=== PATIENT | female | born 1950 | race American Indian/Alaskan Native ===

== ENCOUNTER 2019-07-13 21:52 | Inpatient (IN) | payer SELFPAY, MEDICARE ==
--- NOTE | 2019-07-13 22:31 | Emergency Department Report ---
HPI - General Chief Complaint: Altered Mental Status Time Seen by Provider: 07/13/19 22:23 - HPI HPI: 68-year-old -[place]ian female presents to the emergency department via EMS from home with altered mental status. The patient is very sleepy but is arousable. She is currently AAO x2 to person and place but not time, but she does know the current president. The patient says that she last remembers being at home and waiting for someone while smoking some marijuana but "that was way earlier." She does admit that she has been complaining of some midsternal chest pain intermittently but she did not tell anyone to call EMS and does not remembe r EMS being called. She has a past medical history of hypertension, RI x2, CHF, diabetes, hypothyroidism, asthma, breast cancer. ED Past Medical Hx - Past Medical History Hx Hypertension: Yes Hx Heart Attack/AMI: Yes Hx Diabetes: Yes Hx Deep Vein Thrombosis: No Hx Asthma: Yes Hx HIV: No Additional medical history: hypothyroid - Surgical History Hx Pacemaker: Yes (L CHEST) Additional Surgical History: R breast ca,heart attack X 2 - Social History Smoking Status: Unknown if ever smoked - Medications Home Medications: Home Medications Medication Instructions Recorded Confirmed Last Taken Type Potassium Chloride [Klor-Con 10] 20 meq PO DAILY 04/03/13 02/26/19 Unknown History Simvastatin (Nf) [Zocor TAB] 20 mg PO QHS 04/03/13 02/26/19 Unknown History Anastrozole 1 tab PO DAILY 02/26/19 02/26/19 Unknown History Aspirin [Aspirin BABY CHEW TAB] 81 mg PO QDAY 02/26/19 02/26/19 Unknown History Ferrous Sulfate [Feosol 325 MG tab] 1 tab PO Q2D 02/26/19 02/26/19 Unknown History Insulin Aspart (Nf) [NovoLOG 100 22 units SQ BID 02/26/19 02/26/19 Unknown History UNITS/ML VIAL] Insulin Detemir [Levemir Flextouch] 30 unit SQ BID 02/26/19 02/26/19 Unknown History Isosorbide Dinitrate [Isordil] 20 mg PO BID 02/26/19 02/26/19 Unknown History Levothyroxine [Synthroid] 88 mcg PO QAM 02/26/19 02/26/19 Unknown History Pantoprazole [Protonix TAB] 40 mg PO BID 02/26/19 02/26/19 Unknown History Sacubitril/Valsartan [Entresto 1 tab PO DAILY 02/26/19 02/26/19 Unknown History 49-51 mg] carvediloL [Coreg] 25 mg PO BID 02/26/19 02/26/19 Unknown History hydrALAZINE [Apresoline TAB] 100 mg PO TID 02/26/19 02/26/19 Unknown History traZODone [Desyrel] 100 mg PO QHS 02/26/19 02/26/19 Unknown History Fluconazole [Diflucan ORAL SOLN] 200 mg PO QDAY #2800 oral.liqd 03/01/19 Unknown Rx Metoclopramide [Reglan ORAL LIQ] 10 mg PO Q8H PRN #300 oral.liqd 03/01/19 Unknown Rx ED Review of Systems ROS: Stated complaint: ALTERED MENTAL STATUS Other details as noted in HPI Comment: All other systems reviewed and negative Constitutional: denies: chills, fever Eyes: denies: eye pain, vision change ENT: denies: ear pain, throat pain Respiratory: denies: cough, shortness of breath Cardiovascular: chest pain. denies: palpitations Gastrointestinal: denies: abdominal pain, vomiting Genitourinary: denies: dysuria, discharge Musculoskeletal: denies: back pain, arthralgia Skin: denies: rash, lesions Neurological: headache, confusion Physical Exam - Physical Exam Physical Exam: GENERAL: The patient is well-developed well-nourished. HENT: Normocephalic. Atraumatic. Patient has moist mucous membranes. EYES: Pupils equal reactive to light bilaterally. NECK: Supple. Trachea is midline. CHEST/LUNGS: Rhonchi heard. No tachypnea or accessory muscle use. There is no respiratory distress noted. HEART/CARDIOVASCULAR: Regular. There is no tachycardia. There is no murmur. ABDOMEN: Abdomen is soft, nontender. Patient has normal bowel sounds. There is no abdominal distention. SKIN: Skin is warm and dry. NEURO: The patient is very sleepy but is arousable. Once awake she is AAO x2 to person and place but not time. Cranial nerves II through XII grossly intact. No facial asymmetry. MUSCULOSKELETAL: There is no tenderness or deformity. There is no limitation range of motion. There is no evidence of acute injury. ED Medical Decision Making - Lab Data Result diagrams: 07/14/19 03:52 07/14/19 03:52 - EKG Data -: EKG Interpreted by Me - EKG Data When compared to previous EKG there are: no significant change Interpretation: unchanged when compared t (02/25/19), other (Atrial sensed ventricular paced rhythm at 60 bpm, left axis deviation, prolonged QTC) - Radiology Data Radiology results: report reviewed CT head without contrast INDICATION : Altered mental status. TECHNIQUE: Axial imaging performed from the skull apex through the skull base without the use of contrast. All CT examinations performed at this facility utilize dose modulation, iterative reconstruction or weight-based dosing, when appropriate, to reduce radiation dose to as low as reasonably achievable. COMPARISON: None FINDINGS: No acute intracranial hemorrhage or parenchymal abnormality. There is evidence of cerebellar vermis atrophy, likely chronic. Ventricles are normal in size and appear symmetric. Soft tissues including the orbits appear normal. No acute osseous abnormality. Sinuses and mastoid air cells are clear. IMPRESSION: No acute abnormality. CHEST 1 VIEW INDICATION / CLINICAL INFORMATION: Altered mental status. COMPARISON: 02/25/2019. FINDINGS: SUPPORT DEVICES: None. HEART / MEDIASTINUM: Mild cardiomegaly. LUNGS / PLEURA: Patchy bilateral airspace disease present bilaterally. - Medical Decision Making This patient initially presented for evaluation of altered mental status. Initially the patient is very sleepy but is arousable. She does display some mild confusion as she knows who the president is but was unable to tell me the year. However she does follow commands and there does not appear to be any focal or lateralizing deficits. A CT scan of the head was done that does not show any bleed, shift, mass, ischemia, or any other acute process. Chest x-ray shows some patchy bilateral airspace disease. The patient's labs initially show renal insufficiency and an elevated TSH. She was reevaluated multiple times over multiple hours and is much more awake and alert. At this point she is AAO x3. Blood cultures were sent and the patient was started on antibiotics secondary to the chest x-ray findings. Given her transient altered mental status, the bilateral pneumonia and the renal insufficiency, the patient will be admitted to the hospital for further evaluation and treatment. Also because of the bilateral pneumonia the patient was made a person under investigation for Covid 19 and placed in droplet precautions. She was accepted for admission by the hospitalist, Dr. Tran. Critical Care Time: No Critical care attestation.: If time is entered above; I have spent that time in minutes in the direct care of this critically ill patient, excluding procedure time. ED Disposition Clinical Impression: Acute kidney injury Bilateral pneumonia Qualifiers: Pneumonia type: due to unspecified organism Lung location: unspecified part of lung Qualified Code(s): J18.9 - Pneumonia, unspecified organism Hypotension Qualifiers: Hypotension type: unspecified hypotension type Qualified Code(s): I95.9 - Hypotension, unspecified Chest pain Qualifiers: Chest pain type: unspecified Qualified Code(s): R07.9 - Chest pain, unspecified Disposition: 09 OP ADMIT IP TO THIS HOSP Is pt being admited?: Yes Condition: Serious Time of Disposition: 00:51
[2019-07-13] MEDS ORDERED: SODIUM CHLORIDE 0.9% 500 ML 500 ML IV ONE (22:34)
--- NOTE | 2019-07-13 22:53 | XRay Report ---
CHEST 1 VIEW INDICATION / CLINICAL INFORMATION: Altered mental status. COMPARISON: 02/25/2019. FINDINGS: SUPPORT DEVICES: None. HEART / MEDIASTINUM: Mild cardiomegaly. LUNGS / PLEURA: Patchy bilateral airspace disease present bilaterally. Signer Name: Octavio Antonio MD Signed: 07/13/2019 10:49 PM Workstation Name: [id number]
--- NOTE | 2019-07-13 23:13 | Cat Scan Report ---
CT head without contrast INDICATION : Altered mental status. TECHNIQUE: Axial imaging performed from the skull apex through the skull base without the use of con trast. All CT examinations performed at this facility utilize dose modulation, iterative reconstruct ion or weight-based dosing, when appropriate, to reduce radiation dose to as low as reasonably achiev able. COMPARISON: None FINDINGS: No acute intracranial hemorrhage or parenchymal abnormality. There is evidence of cerebell ar vermis atrophy, likely chronic. Ventricles are normal in size and appear symmetric. Soft tissues including the orbits appear normal. No acute osseous abnormality. Sinuses and mastoid air cells are clear. IMPRESSION: No acute abnormality. Signer Name: Octavio Antonio MD Signed: 07/13/2019 11:09 PM Workstation Name: [id number]
[2019-07-13 23:40] LABS: Basophils % (Auto) 0.6 % (0.0-1.8); Eosinophils # (Auto) 0.2 K/mm3 (0.0-0.4); Eosinophils % (Auto) 2.7 % (0.0-4.3); Hematocrit 36.4 % (30.3-42.9); Hemoglobin 11.6 gm/dl (10.1-14.3); Lymphocytes # (Auto) 1.8 K/mm3 (1.2-5.4); Lymphocytes % (Auto) 22.9 % (13.4-35.0); Mean Corpuscular HGB Conc 32 % (30-34); Mean Corpuscular Volume 84 fl (79-97); Monocytes # (Auto) 0.6 K/mm3 (0.0-0.8); Platelet Count 228 K/mm3 (140-440); Red Blood Count 4.31 M/mm3 (3.65-5.03); Red Cell Distribution Width 16.1 % (13.2-15.2)
[2019-07-13 23:48] LABS: INR 0.97 (0.87-1.13)
[2019-07-13 23:49] LABS: Partial Thromboplastin Time 26.5 Sec. (24.2-36.6)
[2019-07-14 00:04] LABS: Alanine Aminotransferase 20 units/L (7-56); Albumin 4.1 g/dL (3.9-5); BUN/Creatinine Ratio 9; Blood Urea Nitrogen 14 mg/dL (7-17); Calcium 9.3 mg/dL (8.4-10.2); Hemolysis Index 0
[2019-07-14 00:33] LABS: Amphetamine Screen,Urine PRESUMPTIVE NEGATIVE; Benzodiazepines Screen,Urine PRESUMPTIVE NEGATIVE; Cannabinoid Screen,Urine PRESUMPTIVE NEGATIVE; Cocaine Screen,Urine PRESUMPTIVE NEGATIVE; Methadone Screen,Urine PRESUMPTIVE NEGATIVE; Opiate Screen,Urine PRESUMPTIVE NEGATIVE
[2019-07-14 00:36] LABS: Bacteria,Urine 1+ /HPF (Negative); Bilirubin,Urine NEG (Negative); Blood,Urine NEG (Negative); Color,Urine Yellow (Yellow); Mucus,Urine FEW /HPF; Urobilinogen,Urine < 2.0 mg/dL (<2.0)
[2019-07-14] MEDS ORDERED: cefTRIAXone/NS 1 GM/50 ML 1 GM/50 ML BAG IV ONE (00:36)
[2019-07-14] MEDS ORDERED: AZITHROMYCIN 500 MG in SODIUM CHLORIDE 0.9% 250ML 250 ML IV ONE (00:37)
[2019-07-14] MEDS ORDERED: NITROGLYCERIN 0.4 MG TAB SUBL SL PRN (02:04)
[2019-07-14] MEDS ORDERED: ACETAMINOPHEN 325 MG TAB PO PRN (02:04)
[2019-07-14] MEDS ORDERED: DEXTROSE 50% IN WATER (25GM) 50 ML SYRINGE IV PRN (02:04)
[2019-07-14] MEDS ORDERED: MAGNESIUM HYDROXIDE (MOM) ORAL LIQD UDC PO PRN (02:04)
--- NOTE | 2019-07-14 02:18 | History and Physical Report ---
History of Present Illness Date of examination: 07/14/19 Date of admission: 07/14/19 01:25 Chief complaint: Altered mental status Cough History of present illness: 68-year-old -[place] female with known history of hypertension, PR x2 in the past, diabetes mellitus, hypothyroidism, asthma and breast cancer presenting to the emergency room today via EMS from home with altered mental status. Patient was said to be very sleepy and not quite arousable. She became more alert upon arrival in the emergency room. Patient indicates that she last remembered that she was waiting for someone at home while smoking some marijuana earlier in the day. She has been having some midsternal chest pain which has been intermittent. She denies any radiation, no no relieving or exacerbating factor. Chest pain is said to be sharp. She denies any nausea vomiting, no diarrhea, no fever or chills, no abdominal pain. She admits she has been having some cough productive of some yellowish sputum.. She denies any sick contacts and no recent travel. She denies having contact with anyone with COVID-19. Work-up in the emergency room reveals pneumonia on the chest x-ray, her labs also significant for some renal insufficiency. She was initially hypotensive in the emergency room and had some IV fluid with significant improvement in her vital signs. Past History Past Medical History: CAD, diabetes, hypertension, hypothyroidism, other (Asthma, history of right breast cancer) Past Surgical History: Other (Pacemaker placement) Social history: no significant social history Medications and Allergies Allergies Allergy/AdvReac Type Severity Reaction Status Date / Time aspirin AdvReac Vomiting Verified 04/03/13 07:46 Home Medications Medication Instructions Recorded Confirmed Last Taken Type Potassium Chloride [Klor-Con 10] 20 meq PO DAILY 04/03/13 02/26/19 Unknown History Simvastatin (Nf) [Zocor TAB] 20 mg PO QHS 04/03/13 02/26/19 Unknown History Anastrozole 1 tab PO DAILY 02/26/19 02/26/19 Unknown History Aspirin [Aspirin BABY CHEW TAB] 81 mg PO QDAY 02/26/19 02/26/19 Unknown History Ferrous Sulfate [Feosol 325 MG tab] 1 tab PO Q2D 02/26/19 02/26/19 Unknown History Insulin Aspart (Nf) [NovoLOG 100 22 units SQ BID 02/26/19 02/26/19 Unknown History UNITS/ML VIAL] Insulin Detemir [Levemir Flextouch] 30 unit SQ BID 02/26/19 02/26/19 Unknown History Isosorbide Dinitrate [Isordil] 20 mg PO BID 02/26/19 02/26/19 Unknown History Levothyroxine [Synthroid] 88 mcg PO QAM 02/26/19 02/26/19 Unknown History Pantoprazole [Protonix TAB] 40 mg PO BID 02/26/19 02/26/19 Unknown History Sacubitril/Valsartan [Entresto 1 tab PO DAILY 02/26/19 02/26/19 Unknown History 49-51 mg] carvediloL [Coreg] 25 mg PO BID 02/26/19 02/26/19 Unknown History hydrALAZINE [Apresoline TAB] 100 mg PO TID 02/26/19 02/26/19 Unknown History traZODone [Desyrel] 100 mg PO QHS 02/26/19 02/26/19 Unknown History Fluconazole [Diflucan ORAL SOLN] 200 mg PO QDAY #2800 oral.liqd 03/01/19 Unknown Rx Metoclopramide [Reglan ORAL LIQ] 10 mg PO Q8H PRN #300 oral.liqd 03/01/19 Unknown Rx Review of Systems Constitutional: no fever, no chills Ears, nose, mouth and throat: no nasal congestion, no sore throat Cardiovascular: no chest pain, no palpitations Respiratory: cough with sputum, shortness of breath Gastrointestinal: no abdominal pain, no nausea, no vomiting, no diarrhea Genitourinary Female: no flank pain, no dysuria, no hematuria Musculoskeletal: no neck pain, no low back pain Integumentary: no rash, no pruritis Neurological: change in mentation, no headaches Psychiatric: no anxiety, no depression Exam - Constitutional Vitals: Temp Pulse Resp BP Pulse Ox 98.7 F 60 19 97/66 95 07/13/19 22:10 07/14/19 00:15 07/14/19 00:15 07/14/19 00:15 07/14/19 00:15 General appearance: Present: no acute distress, well-nourished, obese - EENT Eyes: Present: PERRL, EOM intact ENT: hearing intact, clear oral mucosa, dentition normal - Neck Neck: Present: supple, normal ROM - Respiratory Respiratory effort: normal Respiratory: bilateral: diminished - Extremities Extremities: no ischemia, pulses intact, pulses symmetrical, No edema, Full ROM Peripheral Pulses: within normal limits - Abdominal General gastrointestinal: Present: soft, non-tender, non-distended, normal bowel sounds - Integumentary Integumentary: Present: clear, warm, dry, rash (Diffuse hyperpigmented rashes on lower extremities) - Musculoskeletal Musculoskeletal: strength equal bilaterally - Psychiatric Psychiatric: appropriate mood/affect, intact judgment & insight, cooperative - Neurologic Neurologic: CNII-XII intact, moves all extremities HEART Score - HEART Score Troponin: Troponin T < 0.010 ng/mL (0.00-0.029) 07/13/19 22:58 Results - Labs CBC & Chem 7: 07/14/19 03:52 07/14/19 03:52 Labs: Abnormal lab results 07/13/19 07/13/19 07/13/19 Range/Units 22:58 22:58 22:58 MCH 27 L (28-32) pg RDW 16.1 H (13.2-15.2) % [place] % (Auto) 8.0 H (0.0-7.3) % D-Dimer (0-234) ng/mlDDU Creatinine 1.5 H (0.7-1.2) mg/dL Glucose 157 H (65-100) mg/dL Lactic Acid (0.7-2.0) mmol/L TSH 10.350 H (0.270-4.200) mlU/mL 07/13/19 07/14/19 07/14/19 Range/Units 23:12 00:56 00:56 MCH (28-32) pg RDW (13.2-15.2) % [place] % (Auto) (0.0-7.3) % D-Dimer 927.08 H (0-234) ng/mlDDU Creatinine (0.7-1.2) mg/dL Glucose (65-100) mg/dL Lactic Acid 2.20 H* 2.20 H* (0.7-2.0) mmol/L TSH (0.270-4.200) mlU/mL Assessment and Plan - Patient Problems (1) Bilateral pneumonia Current Visit: Yes Status: Acute Qualifiers: Pneumonia type: due to unspecified organism Lung location: unspecified part of lung Qualified Code(s): J18.9 - Pneumonia, unspecified organism Plan to address problem: Patient placed on empiric IV antibiotics and IV fluid. She also be ruled out for COVID-[address]. [address] on droplet precautions. (2) Acute kidney injury Current Visit: Yes Status: Acute Plan to address problem: Possibly secondary to dehydration. Will monitor BUN and creatinine. (3) Chest pain Current Visit: Yes Status: Acute Qualifiers: Chest pain type: unspecified Qualified Code(s): R07.9 - Chest pain, unspecified Plan to address problem: Patient placed on telemetry. Will monitor serial troponin levels. Also place a consult to cardiology for further evaluation and recommendation Patient be scheduled for stress test. (4) Type II diabetes mellitus Current Visit: No Status: Acute Plan to address problem: We will monitor Accu-Cheks and resume routine home medications once reconciled. (5) DVT prophylaxis Current Visit: Yes Status: Acute Plan to address problem: Patient placed on subcutaneous heparin. (6) Full code status Current Visit: Yes Status: Acute
[2019-07-14 04:41] LABS: Basophils % (Auto) 0.4 % (0.0-1.8); Eosinophils # (Auto) 0.2 K/mm3 (0.0-0.4); Eosinophils % (Auto) 2.6 % (0.0-4.3); Hematocrit 34.7 % (30.3-42.9); Hemoglobin 11.3 gm/dl (10.1-14.3); Lymphocytes # (Auto) 2.1 K/mm3 (1.2-5.4); Lymphocytes % (Auto) 25.7 % (13.4-35.0); Mean Corpuscular HGB Conc 32 % (30-34); Mean Corpuscular Volume 86 fl (79-97); Monocytes # (Auto) 0.8 K/mm3 (0.0-0.8); Monocytes % (Auto) 9.7 % (0.0-7.3); Platelet Count 162 K/mm3 (140-440); Red Blood Count 4.05 M/mm3 (3.65-5.03)
[2019-07-14 05:00] LABS: BUN/Creatinine Ratio 11; Blood Urea Nitrogen 16 mg/dL (7-17); Calcium 9.4 mg/dL (8.4-10.2)
[2019-07-14 05:26] LABS: C-Reactive Protein 0.3 mg/dL (0.00-1.30)
[2019-07-14] MEDS ORDERED: REGADENOSON 0.4 MG/5 ML INJ IV ONE ×2 (08:21→08:27)
[2019-07-14] MEDS: INSULIN LISPRO 100 UNIT/ML SUB-Q SCH ×4 (10:06→21:44)
[2019-07-14] MEDS ORDERED: SODIUM CHLORIDE 0.9% 1000 ML 1,000 ML ONE (10:16)
[2019-07-14] MEDS ORDERED: MORPHINE 2 MG/1 ML INJ ONE ×2 (10:18→15:27)
--- NOTE | 2019-07-14 10:33 | Event Note ---
Date: 07/14/19 This is a follow-up from an admission earlier this morning. Patient seen and examined. We will continue to plan as outlined in the H&P. Total time equals 35 minutes with greater than 50% spent on coordination of care and counseling.
[2019-07-14] MEDS: SODIUM CHLORIDE 0.9% 1000 ML 1,000 ML IV SCH ×2 (11:02→17:26)
[2019-07-14] MEDS: MORPHINE 2 MG/1 ML INJ IV PRN ×3 (11:02→21:49)
[2019-07-14] MEDS ORDERED: INSULIN LISPRO 100 UNIT/ML SUB-Q ONE (13:07)
--- NOTE | 2019-07-14 13:22 | Consultation ---
History of Present Illness Consult date: 07/14/19 Consult reason: chest pain History of present illness: This is a 68-year old woman who presents to the emergency department with altered mental status. Patient reports taking trazodone and Mucinex for congestion before going to bed. Patient awoke with confusion and was brought in for evaluation. Currently, alert and oriented. She denies chest pain and unusual shortness of breath. Chest x-ray reports patchy bilateral airspace. Patient is on isolation for potential COVID 19. An ECG is AV paced rhythm. Patient has a history of nonischemic cardiomyopathy. She had a cardiac cath in 2015 that showed normal coronary arteries with an ejection fraction 50%. Subsequent echocardiograms showed a severe left ventricular dysfunction and a year ago she had a bi-ventricular dual chamber ICD implant. Her latest cardiac workup was done in February. She had a normal stress thallium test at [place]. An echocardiogram done at this hospital showed a left ventricular ejection fraction 40-45%. Past History Past Medical History: CAD, diabetes, hypertension, hypothyroidism, other (Asthma, history of right breast cancer) Past Surgical History: Other (Pacemaker placement) Social history: no significant social history Medications and Allergies Allergies Allergy/AdvReac Type Severity Reaction Status Date / Time aspirin AdvReac Vomiting Verified 04/03/13 07:46 Home Medications Medication Instructions Recorded Confirmed Last Taken Type Potassium Chloride [Klor-Con 10] 20 meq PO DAILY 04/03/13 02/26/19 Unknown History Simvastatin (Nf) [Zocor TAB] 20 mg PO QHS 04/03/13 02/26/19 Unknown History Anastrozole 1 tab PO DAILY 02/26/19 02/26/19 Unknown History Aspirin [Aspirin BABY CHEW TAB] 81 mg PO QDAY 02/26/19 02/26/19 Unknown History Ferrous Sulfate [Feosol 325 MG tab] 1 tab PO Q2D 02/26/19 02/26/19 Unknown History Insulin Aspart (Nf) [NovoLOG 100 22 units SQ BID 02/26/19 02/26/19 Unknown History UNITS/ML VIAL] Insulin Detemir [Levemir Flextouch] 30 unit SQ BID 02/26/19 02/26/19 Unknown History Isosorbide Dinitrate [Isordil] 20 mg PO BID 02/26/19 02/26/19 Unknown History Levothyroxine [Synthroid] 88 mcg PO QAM 02/26/19 02/26/19 Unknown History Pantoprazole [Protonix TAB] 40 mg PO BID 02/26/19 02/26/19 Unknown History Sacubitril/Valsartan [Entresto 1 tab PO DAILY 02/26/19 02/26/19 Unknown History 49-51 mg] carvediloL [Coreg] 25 mg PO BID 02/26/19 02/26/19 Unknown History hydrALAZINE [Apresoline TAB] 100 mg PO TID 02/26/19 02/26/19 Unknown History traZODone [Desyrel] 100 mg PO QHS 02/26/19 02/26/19 Unknown History Fluconazole [Diflucan ORAL SOLN] 200 mg PO QDAY #2800 oral.liqd 03/01/19 Unknown Rx Metoclopramide [Reglan ORAL LIQ] 10 mg PO Q8H PRN #300 oral.liqd 03/01/19 Unknown Rx Active Meds: Active Medications Acetaminophen (Tylenol) 650 mg PO Q6H PRN PRN Reason: Pain MILD(1-3)/Fever >100.5/ORNELAS Aspirin (Ecotrin) 325 mg PO QDAY ROSE Dextrose (D50w (25gm) Syringe) 0 ml IV Q30MIN PRN; Protocol PRN Reason: Hypoglycemia Heparin Sodium (Porcine) (Heparin) 5,000 unit SUB-Q Q8HR ROSE Sodium Chloride (Nacl 0.9% 1000 Ml) 1,000 mls @ 125 mls/hr IV DIRECT ROSE Last Admin: 07/14/19 11:02 Dose: 125 mls/hr Documented by: Ceftriaxone Sodium (Rocephin/Ns 2 Gm/100 Ml) 2 gm in 100 mls @ 200 mls/hr IV Q24HR@2200 ROSE; Protocol Azithromycin 500 mg/ Sodium (Chloride) 250 mls @ 250 mls/hr IV Q24HR@2200 ROSE; Protocol Stop: 07/17/19 22:59 Insulin Human Lispro (Humalog) 0 unit SUB-Q ACHS ROSE; Protocol Last Admin: 07/14/19 10:06 Dose: Not Given Documented by: Magnesium Hydroxide (Milk Of Magnesia) 30 ml PO Q4H PRN PRN Reason: Constipation Morphine Sulfate (Morphine) 2 mg IV Q5MIN PRN PRN Reason: Chest Pain unrelieved by NTG Last Admin: 07/14/19 11:02 Dose: 2 mg Documented by: Nitroglycerin (Nitrostat) 0.4 mg SL Q5M PRN PRN Reason: Chest Pain Sodium Chloride (Sodium Chloride Flush Syringe 10 Ml) 10 ml IV BID ROSE Last Admin: 07/14/19 11:01 Dose: 10 ml Documented by: Sodium Chloride (Sodium Chloride Flush Syringe 10 Ml) 10 ml IV PRN PRN PRN Reason: LINE FLUSH Physical Examination Vital Signs Temp Pulse Resp BP Pulse Ox 98.7 F 60 20 84/42 95 07/13/19 22:10 07/13/19 22:10 07/13/19 22:10 07/13/19 22:10 07/13/19 22:10 General appearance: no acute distress HEENT: Positive: PERRL Neck: Positive: trachea midline Cardiac: Positive: Other (AV paced) Neuro: Positive: Grossly Intact Results 07/14/19 03:52 07/14/19 03:52 Cardiac Enzymes 07/13/19 07/14/19 Range/Units 22:58 00:56 AST 24 (5-40) units/L Lactate Dehydrogenase 263 H (91-180) units/L Coagulation 07/13/19 Range/Units 22:58 PT 13.0 (12.2-14.9) Sec. INR 0.97 (0.87-1.13) APTT 26.5 (24.2-36.6) Sec. CBC 07/13/19 07/14/19 Range/Units 22:58 03:52 WBC 7.9 8.3 (4.5-11.0) K/mm3 RBC 4.31 4.05 (3.65-5.03) M/mm3 Hgb 11.6 11.3 (10.1-14.3) gm/dl Hct 36.4 34.7 (30.3-42.9) % Plt Count 228 162 (140-440) K/mm3 Lymph # 1.8 2.1 (1.2-5.4) K/mm3 [place] # 0.6 0.8 (0.0-0.8) K/mm3 Eos # 0.2 0.2 (0.0-0.4) K/mm3 Baso # 0.0 0.0 (0.0-0.1) K/mm3 Comprehensive Metabolic Panel 07/13/19 07/14/19 Range/Units 22:58 03:52 Sodium 143 141 (137-145) mmol/L Potassium 3.6 4.7 D (3.6-5.0) mmol/L Chloride 100.3 99.5 (98-107) mmol/L Carbon Dioxide 26 26 (22-30) mmol/L BUN 14 16 (7-17) mg/dL Creatinine 1.5 H 1.5 H (0.7-1.2) mg/dL Glucose 157 H 148 H (65-100) mg/dL Calcium 9.3 9.4 (8.4-10.2) mg/dL AST 24 (5-40) units/L ALT 20 (7-56) units/L Alkaline Phosphatase 73 (35-129) units/L Total Protein 7.0 (6.3-8.2) g/dL Albumin 4.1 (3.9-5) g/dL
--- NOTE | 2019-07-14 13:44 | Consultation ---
History of Present Illness - Reason for Consult Consult date: 07/14/19 COVID rule out Requesting physician: KERRY HUI - History of Present Illness The patient is a 68-year-old female with hypertension, cardiomyopathy, status post indwelling AICD, diabetes mellitus, hypothyroidism, asthma, history of breast cancer was admitted from the emergency room with complaints of cough and altered mental status. She also complained of some midsternal chest pain. She has had no fever or chills. Chest x-ray showed bilateral airspace disease. She was placed on COVID isolation. Infectious diseases was consulted for additional evaluation. Here, she has been afebrile with no leukocytosis. D-dimer 927, LDH 263, CRP 0.3, procalcitonin less than 0.05, ferritin 98.4 Review of Systems: reviewed in the chart, unable to obtain directly due to PPE shortage and preservation Past History Past Medical History: CAD, diabetes, hypertension, hypothyroidism, other (Asthma, history of right breast cancer) Past Surgical History: Other (Pacemaker placement) Social history: no significant social history Medications and Allergies Allergies Allergy/AdvReac Type Severity Reaction Status Date / Time aspirin AdvReac Vomiting Verified 04/03/13 07:46 Home Medications Medication Instructions Recorded Confirmed Last Taken Type Potassium Chloride [Klor-Con 10] 20 meq PO DAILY 04/03/13 02/26/19 Unknown History Simvastatin (Nf) [Zocor TAB] 20 mg PO QHS 04/03/13 02/26/19 Unknown History Anastrozole 1 tab PO DAILY 02/26/19 02/26/19 Unknown History Aspirin [Aspirin BABY CHEW TAB] 81 mg PO QDAY 02/26/19 02/26/19 Unknown History Ferrous Sulfate [Feosol 325 MG tab] 1 tab PO Q2D 02/26/19 02/26/19 Unknown History Insulin Aspart (Nf) [NovoLOG 100 22 units SQ BID 02/26/19 02/26/19 Unknown History UNITS/ML VIAL] Insulin Detemir [Levemir Flextouch] 30 unit SQ BID 02/26/19 02/26/19 Unknown History Isosorbide Dinitrate [Isordil] 20 mg PO BID 02/26/19 02/26/19 Unknown History Levothyroxine [Synthroid] 88 mcg PO QAM 02/26/19 02/26/19 Unknown History Pantoprazole [Protonix TAB] 40 mg PO BID 02/26/19 02/26/19 Unknown History Sacubitril/Valsartan [Entresto 1 tab PO DAILY 02/26/19 02/26/19 Unknown History 49-51 mg] carvediloL [Coreg] 25 mg PO BID 02/26/19 02/26/19 Unknown History hydrALAZINE [Apresoline TAB] 100 mg PO TID 02/26/19 02/26/19 Unknown History traZODone [Desyrel] 100 mg PO QHS 02/26/19 02/26/19 Unknown History Fluconazole [Diflucan ORAL SOLN] 200 mg PO QDAY #2800 oral.liqd 03/01/19 Unknown Rx Metoclopramide [Reglan ORAL LIQ] 10 mg PO Q8H PRN #300 oral.liqd 03/01/19 Unknown Rx Active Meds: Active Medications Acetaminophen (Tylenol) 650 mg PO Q6H PRN PRN Reason: Pain MILD(1-3)/Fever >100.5/ORNELAS Aspirin (Ecotrin) 325 mg PO QDAY ROSE Dextrose (D50w (25gm) Syringe) 0 ml IV Q30MIN PRN; Protocol PRN Reason: Hypoglycemia Heparin Sodium (Porcine) (Heparin) 5,000 unit SUB-Q Q8HR ROSE Sodium Chloride (Nacl 0.9% 1000 Ml) 1,000 mls @ 125 mls/hr IV DIRECT ROSE Last Admin: 07/14/19 11:02 Dose: 125 mls/hr Documented by: Ceftriaxone Sodium (Rocephin/Ns 2 Gm/100 Ml) 2 gm in 100 mls @ 200 mls/hr IV Q24HR@2200 ROSE; Protocol Azithromycin 500 mg/ Sodium (Chloride) 250 mls @ 250 mls/hr IV Q24HR@2200 ROSE; Protocol Stop: 07/17/19 22:59 Insulin Human Lispro (Humalog) 0 unit SUB-Q ACHS ROSE; Protocol Last Admin: 07/14/19 13:25 Dose: 4 unit Documented by: Magnesium Hydroxide (Milk Of Magnesia) 30 ml PO Q4H PRN PRN Reason: Constipation Morphine Sulfate (Morphine) 2 mg IV Q5MIN PRN PRN Reason: Chest Pain unrelieved by NTG Last Admin: 07/14/19 11:02 Dose: 2 mg Documented by: Nitroglycerin (Nitrostat) 0.4 mg SL Q5M PRN PRN Reason: Chest Pain Sodium Chloride (Sodium Chloride Flush Syringe 10 Ml) 10 ml IV BID ROSE Last Admin: 07/14/19 11:01 Dose: 10 ml Documented by: Sodium Chloride (Sodium Chloride Flush Syringe 10 Ml) 10 ml IV PRN PRN PRN Reason: LINE FLUSH Physical Examination - Physical Exam Narrative exam: Physical Exam (reviewed in chart due to PPE conservation) Constitutional: limited due to PPE conservation strategy Head, Ears, Nose: limited due to PPE conservation strategy Eyes: limited due to PPE conservation strategy Neck: limited due to PPE conservation strategy Oral: limited due to PPE conservation strategy Cardiovascular: limited due to PPE conservation strategy Respiratory: limited due to PPE conservation strategy GI: limited due to PPE conservation strategy Musculoskeletal: limited due to PPE conservation strategy Skin: limited due to PPE conservation strategy Hem/Lymphatic: limited due to PPE conservation strategy Psych: limited due to PPE conservation strategy Neurological: limited due to PPE conservation strategy - Constitutional Vitals: Vital Signs Temp Pulse Resp BP Pulse Ox 98.7 F 61 16 177/63 99 07/13/19 22:10 07/14/19 11:01 07/14/19 11:01 07/14/19 11:01 07/14/19 11:01 Temperature -Last 24 Hours Temperature 98.7 F Results - Labs CBC & Chem 7: 07/14/19 03:52 07/14/19 03:52 Labs: Abnormal lab results 07/13/19 07/13/19 07/13/19 Range/Units 22:58 22:58 22:58 MCH 27 L (28-32) pg RDW 16.1 H (13.2-15.2) % [place] % (Auto) 8.0 H (0.0-7.3) % D-Dimer (0-234) ng/mlDDU Creatinine 1.5 H (0.7-1.2) mg/dL Glucose 157 H (65-100) mg/dL POC Glucose (70-105) Lactic Acid (0.7-2.0) mmol/L Lactate Dehydrogenase (91-180) units/L TSH 10.350 H (0.270-4.200) mlU/mL 07/13/19 07/14/19 07/14/19 Range/Units 23:12 00:56 00:56 MCH (28-32) pg RDW (13.2-15.2) % [place] % (Auto) (0.0-7.3) % D-Dimer 927.08 H (0-234) ng/mlDDU Creatinine (0.7-1.2) mg/dL Glucose (65-100) mg/dL POC Glucose (70-105) Lactic Acid 2.20 H* 2.20 H* (0.7-2.0) mmol/L Lactate Dehydrogenase (91-180) units/L TSH (0.270-4.200) mlU/mL 07/14/19 07/14/19 07/14/19 Range/Units 00:56 03:52 03:52 [facility] (28-32) pg RDW 16.0 H (13.2-15.2) % [place] % (Auto) 9.7 H (0.0-7.3) % D-Dimer (0-234) ng/mlDDU Creatinine 1.5 H (0.7-1.2) mg/dL Glucose 148 H (65-100) mg/dL POC Glucose (70-105) Lactic Acid (0.7-2.0) mmol/L Lactate Dehydrogenase 263 H (91-180) units/L TSH (0.270-4.200) mlU/mL 07/14/19 Range/Units 09:01 [facility] (28-32) pg RDW (13.2-15.2) % [place] % (Auto) (0.0-7.3) % D-Dimer (0-234) ng/mlDDU Creatinine (0.7-1.2) mg/dL Glucose (65-100) mg/dL POC Glucose 248 H (70-105) Lactic Acid (0.7-2.0) mmol/L Lactate Dehydrogenase (91-180) units/L TSH (0.270-4.200) mlU/mL - Imaging and Cardiology Chest x-ray: report reviewed, image reviewed (Chest x-ray showed indwelling cardiac device, bilateral patchy airspace disease.) Assessment and Plan Cultures: 07/14/2019 blood culture: In process A/P: 68-year-old female with hypertension, cardiomyopathy, status post indwelling AICD, diabetes mellitus, hypothyroidism, asthma, history of breast cancer, admitted with: #Bilateral airspace disease: Etiology pneumonia versus heart failure. CRP and pro-calcitonin are low. Low suspicion for infectious process. Agree with COVID-19 rule out. D-dimer 927, LDH 263, CRP 0.3, procalcitonin less than 0.05, ferritin 98.4 #CED versus CKD #DM-2 Recs: Follow-up COVID-19 PCR Low suspicion for infectious process especially bacterial pneumonia, will discontinue antibiotics BNP ordered, cardiology following My Kumar MD, FACP [facility] ([facility]) C: [phone] O: [phone] F: [phone]
[2019-07-14] MEDS ORDERED: carvediloL 25 MG TAB PO ONE (14:30)
[2019-07-14] MEDS ORDERED: hydrALAZINE 100 MG TAB PO ONE (14:30)
[2019-07-14] MEDS ORDERED: carvediloL 25 MG TAB ONE (14:47)
[2019-07-14] MEDS ORDERED: hydrALAZINE 100 MG TAB ONE (14:47)
[2019-07-14] MEDS ORDERED: HEPARIN 5,000 UNIT/1 ML VIAL ONE (14:47)
[2019-07-14] MEDS: HEPARIN 5,000 UNIT/1 ML VIAL SUB-Q SCH ×2 (14:59→21:42)
[2019-07-14] MEDS ORDERED: ACETAMINOPHEN 325 MG TAB ONE (15:27)
[2019-07-14] MEDS: hydrALAZINE 100 MG TAB PO SCH (20:38)
[2019-07-14] MEDS: carvediloL 25 MG TAB PO SCH (21:41)
[2019-07-14] MEDS: ISOSORBIDE DINITRATE 20 MG TAB PO SCH (21:45)
[2019-07-14] MEDS ORDERED: cefTRIAXone/NS 2 GM/100 ML 2 GM/100 ML BAG IV SCH (22:00)
[2019-07-14] MEDS ORDERED: AZITHROMYCIN 500 MG in SODIUM CHLORIDE 0.9% 250ML 250 ML IV SCH (22:00)
[2019-07-15] MEDS: SODIUM CHLORIDE 0.9% 1000 ML 1,000 ML IV SCH ×3 (01:08→17:00)
[2019-07-15 04:30] LABS: INR 1.05 (0.87-1.13)
[2019-07-15 04:33] LABS: Hemoglobin 11.3 gm/dl (10.1-14.3); Mean Corpuscular HGB Conc 32 % (30-34); Mean Corpuscular Volume 85 fl (79-97); Platelet Count 159 K/mm3 (140-440); Red Blood Count 4.09 M/mm3 (3.65-5.03); Red Cell Distribution Width 16.1 % (13.2-15.2)
[2019-07-15 04:40] LABS: BUN/Creatinine Ratio 12; Blood Urea Nitrogen 12 mg/dL (7-17); Calcium 8.5 mg/dL (8.4-10.2); Hemolysis Index 84
[2019-07-15] MEDS: HEPARIN 5,000 UNIT/1 ML VIAL SUB-Q SCH ×3 (06:36→21:22)
[2019-07-15] MEDS: MORPHINE 2 MG/1 ML INJ IV PRN ×3 (06:42→17:38)
[2019-07-15] MEDS: hydrALAZINE 100 MG TAB PO SCH ×3 (08:51→20:18)
[2019-07-15] MEDS: INSULIN LISPRO 100 UNIT/ML SUB-Q SCH ×5 (08:51→21:23)
[2019-07-15] MEDS: ASPIRIN EC 325 MG TAB PO SCH (09:16)
[2019-07-15] MEDS: ISOSORBIDE DINITRATE 20 MG TAB PO SCH ×2 (09:16→21:23)
[2019-07-15] MEDS: carvediloL 25 MG TAB PO SCH ×2 (09:17→21:20)
--- NOTE | 2019-07-15 09:21 | Progress Note ---
Assessment and Plan Assessment and plan: (1) Bilateral pneumonia Current Visit: Yes Status: Acute Qualifiers: Pneumonia type: due to unspecified organism Lung location: unspecified part of lung Qualified Code(s): J18.9 - Pneumonia, unspecified organism Plan to address problem: Patient placed on empiric IV antibiotics and IV fluid. Negative for Covid-19. (2) Acute kidney injury Current Visit: Yes Status: Acute Plan to address problem: Due to vasomotor nephropathy Now resolved Chest pain Current Visit: Yes Status: Acute Qualifiers: Chest pain type: unspecified Qualified Code(s): R07.9 - Chest pain, unspecified Plan to address problem: Patient placed on telemetry. Will monitor serial troponin levels. Also place a consult to cardiology for further evaluation and recommendation (4) Type II diabetes mellitus Current Visit: No Status: Acute Plan to address problem: We will monitor Accu-Cheks and resume routine home medications once reconciled. (5) DVT prophylaxis Current Visit: Yes Status: Acute Plan to address problem: Patient placed on subcutaneous heparin. HTN urgency Resume home meds Add hydralazine prn (6) Full code status History Interval history: feels better nausea Hospitalist Physical - Physical exam Narrative exam: GEN: Not in acute distress, lying in bed,obese HEENT: Normocephalic, atraumatic, Neck: supple, No JVD Lungs: Clear to auscultation bilaterally, heart;S1 and S2 reg, no murmurs, rubs or gallop Abd:soft, non tender, non distended, normal bowel sounds, Ext: No edema, no clubbing, no cyanosis, Neuro: Awake,alert,oriented X3 , no focal signs, - Constitutional Vitals: Temp Pulse Resp BP Pulse Ox 98.6 F 69 15 195/92 100 07/15/19 07:53 07/15/19 04:00 07/15/19 06:42 07/15/19 09:17 07/15/19 04:00 General appearance: Present: no acute distress HEART Score - HEART Score Troponin: Troponin T < 0.010 ng/mL (0.00-0.029) 07/14/19 11:31 Results - Labs CBC & Chem 7: 07/15/19 04:00 07/15/19 04:00 Labs: Laboratory Last Values WBC 6.9 K/mm3 (4.5-11.0) 07/15/19 04:00 RBC 4.09 M/mm3 (3.65-5.03) 07/15/19 04:00 Hgb 11.3 gm/dl (10.1-14.3) 07/15/19 04:00 Hct 35.0 % (30.3-42.9) 07/15/19 04:00 MCV 85 fl (79-97) 07/15/19 04:00 MCH 28 pg (28-32) 07/15/19 04:00 MCHC 32 % (30-34) 07/15/19 04:00 RDW 16.1 % (13.2-15.2) H 07/15/19 04:00 Plt Count 159 K/mm3 (140-440) 07/15/19 04:00 Lymph % (Auto) Dock Manager 07/15/19 04:00 [place] % (Auto) Dock Manager 07/15/19 04:00 Eos % (Auto) Dock Manager 07/15/19 04:00 Baso % (Auto) Dock Manager 07/15/19 04:00 Lymph # Dock Manager 07/15/19 04:00 [place] # Dock Manager 07/15/19 04:00 Eos # Dock Manager 07/15/19 04:00 Baso # Dock Manager 07/15/19 04:00 Seg Neutrophils % Dock Manager 07/15/19 04:00 Seg Neutrophils # Dock Manager 07/15/19 04:00 PT 13.8 Sec. (12.2-14.9) 07/15/19 04:00 INR 1.05 (0.87-1.13) 07/15/19 04:00 APTT 26.5 Sec. (24.2-36.6) 07/13/19 22:58 D-Dimer 927.08 ng/mlDDU (0-234) H 07/14/19 00:56 Sodium 139 mmol/L (137-145) 07/15/19 04:00 Potassium 4.6 mmol/L (3.6-5.0) 07/15/19 04:00 Chloride 101.8 mmol/L (98-107) 07/15/19 04:00 Carbon Dioxide 23 mmol/L (22-30) 07/15/19 04:00 Anion Gap 19 mmol/L 07/15/19 04:00 BUN 12 mg/dL (7-17) 07/15/19 04:00 Creatinine 1.0 mg/dL (0.7-1.2) 07/15/19 04:00 Estimated GFR > 60 ml/min 07/15/19 04:00 BUN/Creatinine Ratio 12 % 07/15/19 04:00 Glucose 325 mg/dL (65-100) H 07/15/19 04:00 POC Glucose 311 (70-105) H 07/15/19 08:45 Lactic Acid 2.20 mmol/L (0.7-2.0) H* 07/14/19 00:56 Calcium 8.5 mg/dL (8.4-10.2) 07/15/19 04:00 Ferritin 98.4 ng/mL (13.0-400.0) 07/14/19 00:56 Total Bilirubin < 0.20 mg/dL (0.1-1.2) 07/13/19 22:58 AST 24 units/L (5-40) 07/13/19 22:58 ALT 20 units/L (7-56) 07/13/19 22:58 Alkaline Phosphatase 73 units/L (35-129) 07/13/19 22:58 Ammonia 35.0 umol/L (25-60) 07/13/19 22:58 Lactate Dehydrogenase 263 units/L (91-180) H 07/14/19 00:56 Troponin T < 0.010 ng/mL (0.00-0.029) 07/14/19 11:31 C-Reactive Protein 0.30 mg/dL (0.00-1.30) 07/14/19 00:56 NT-Pro-B Natriuret Pep 115.0 pg/mL (0-900) 07/14/19 11:31 Total Protein 7.0 g/dL (6.3-8.2) 07/13/19 22:58 Albumin 4.1 g/dL (3.9-5) 07/13/19 22:58 Albumin/Globulin Ratio 1.4 % 07/13/19 22:58 Procalcitonin < 0.05 ng/mL (<0.15) 07/14/19 00:56 TSH 10.350 mlU/mL (0.270-4.200) H 07/13/19 22:58 Free T4 1.17 ng/dL (0.76-1.46) 07/14/19 00:56 Urine Color Yellow (Yellow) 07/14/19 00:15 Urine Turbidity Clear (Clear) 07/14/19 00:15 Urine pH 5.0 (5.0-7.0) 07/14/19 00:15 Ur Specific [place] 1.017 (1.003-1.030) 07/14/19 00:15 Urine Protein 100 mg/dl mg/dL (Negative) 07/14/19 00:15 Urine Glucose (UA) >=500 mg/dL (Negative) 07/14/19 00:15 Urine Ketones Neg mg/dL (Negative) 07/14/19 00:15 Urine Blood Neg (Negative) 07/14/19 00:15 Urine Nitrite Neg (Negative) 07/14/19 00:15 Urine Bilirubin Neg (Negative) 07/14/19 00:15 Urine Urobilinogen < 2.0 mg/dL (<2.0) 07/14/19 00:15 Ur Leukocyte Esterase Tr (Negative) 07/14/19 00:15 Urine WBC (Auto) 2.0 /HPF (0.0-6.0) 07/14/19 00:15 Urine RBC (Auto) 3.0 /HPF (0.0-6.0) 07/14/19 00:15 U Epithel Cells (Auto) 1.0 /HPF (0-13.0) 07/14/19 00:15 Urine Bacteria (Auto) 1+ /HPF (Negative) 07/14/19 00:15 Urine Mucus Few /HPF 07/14/19 00:15 Urine Opiates Screen Presumptive negative 07/14/19 00:15 Urine Methadone Screen Presumptive negative 07/14/19 00:15 Ur Barbiturates Screen Presumptive negative 07/14/19 00:15 Ur Phencyclidine Scrn Presumptive negative 07/14/19 00:15 Ur Amphetamines Screen Presumptive negative 07/14/19 00:15 U Benzodiazepines Scrn Presumptive negative 07/14/19 00:15 Urine Cocaine Screen Presumptive negative 07/14/19 00:15 U Marijuana (THC) Screen Presumptive negative 07/14/19 00:15 Drugs of Abuse Note Disclamer 07/14/19 00:15 Plasma/Serum Alcohol < 0.01 % (0-0.07) 07/13/19 22:58 Coronavirus (PCR) Negative (Negative) 07/14/19 08:40 Microbiology: Microbiology 07/14/19 Unknown Peripheral/Venous Blood Culture - Preliminary NO GROWTH AFTER 24 HOURS 07/14/19 Unknown Peripheral/Venous Blood Culture - Preliminary NO GROWTH AFTER 24 HOURS Long/IV: Voiding Method Toilet IV Catheter Type [Left Upper INT / Saline Lock arm] IV Catheter Type [Right Hand] Peripheral IV Active Medications - Current Medications Current Medications: Generic Name Dose Route Start Last Admin Trade Name Freq PRN Reason Stop Dose Admin Acetaminophen 650 mg 07/14/19 02:04 07/14/19 15:31 Tylenol PO 650 mg Q6H PRN Administration Pain MILD(1-3)/Fever >100.5/ORNELAS Aspirin 325 mg 07/15/19 10:00 07/15/19 09:16 Ecotrin PO 325 mg QDAY ROSE Administration Carvedilol 25 mg 07/14/19 22:00 07/15/19 09:17 Coreg PO 25 mg BID ROSE Administration Colchicine 0.6 mg 07/15/19 10:00 Colchicine PO DAILY ROSE Dextrose 0 ml 07/14/19 02:04 D50w (25gm) Syringe IV Q30MIN PRN Hypoglycemia Protocol Ferrous Sulfate 325 mg 07/15/19 10:00 Feosol PO Q2D ROSE Heparin Sodium (Porcine) 5,000 unit 07/14/19 14:00 07/15/19 06:36 Heparin SUB-Q 5,000 unit Q8HR ROSE Administration Hydralazine HCl 100 mg 07/14/19 20:00 07/15/19 08:51 Apresoline PO 100 mg TID ROSE Administration Sodium Chloride 1,000 mls @ 125 mls/hr 07/14/19 02:15 07/15/19 09:15 Nacl 0.9% 1000 Ml IV 125 mls/hr DIRECT ROSE Administration Insulin Human Lispro 0 unit 07/14/19 07:30 07/15/19 08:51 Humalog SUB-Q 6 unit ACHS ROSE Administration Protocol Isosorbide Dinitrate 20 mg 07/14/19 22:00 07/15/19 09:16 Isordil PO 20 mg BID ROSE Administration Magnesium Hydroxide 30 ml 07/14/19 02:04 Milk Of Magnesia PO Q4H PRN Constipation Miscellaneous Medication 1 puff 07/15/19 10:00 Fluticasone/Salmeterol [Advair Diskus 250-50 Mcg] IH BID [facility] Miscellaneous Medication 20 mg 07/15/19 10:00 Rosuvastatin Calcium [Rosuvastatin Calcium] PO DAILY ROSE Miscellaneous Medication 20 mg 07/15/19 10:00 Torsemide [Demadex] PO DAILY ROSE Morphine Sulfate 2 mg 07/14/19 02:04 07/15/19 06:42 Morphine IV 2 mg Q5MIN PRN Administration Chest Pain unrelieved by NTG Nifedipine 30 mg 07/15/19 10:00 Procardia Xl PO DAILY ROSE Nitroglycerin 0.4 mg 07/14/19 02:04 Nitrostat SL Q5M PRN Chest Pain Sodium Chloride 10 ml 07/14/19 10:00 07/15/19 09:18 Sodium Chloride Flush Syringe 10 Ml IV 10 ml BID ROSE Administration Sodium Chloride 10 ml 07/14/19 02:04 Sodium Chloride Flush Syringe 10 Ml IV PRN PRN LINE FLUSH Tizanidine HCl 4 mg 07/15/19 22:00 Zanaflex PO QHS ROSE Trazodone HCl 100 mg 07/15/19 22:[address] 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 Pt states she is not getting the correct amount of insulin here and that is why BG levels are elevated. Nutrition Intervention Revisit per MD consult or patient Sign Off request:
[2019-07-15] MEDS ORDERED: hydrALAZINE 20 MG/1 ML INJ IV PRN (09:22)
[2019-07-15] MEDS: COLCHICINE 0.6 MG CAP PO SCH (09:27)
[2019-07-15] MEDS ORDERED: NON-FORMULARY EACH (Fluticasone/Salmeterol [Advair Diskus 250-50 Mcg] 1 PUFF) IH SCH (10:00)
[2019-07-15] MEDS ORDERED: NIFEdipine XL 30 MG TAB PO SCH (10:00)
[2019-07-15] MEDS ORDERED: FERROUS SULFATE 325 MG TAB PO SCH (10:00)
[2019-07-15] MEDS: TORSEMIDE 10 MG TAB PO SCH (10:03)
[2019-07-15] MEDS ORDERED: INSULIN DETEMIR 30 UNIT SUB-Q SCH (12:15)
--- NOTE | 2019-07-15 12:21 | Progress Note ---
Assessment and Plan Hx of nonischemic cardiomyopathy LVEF 40 to 45% 02/2019. No ischemia by MPI at [facility] 02/2019. Presence of cardiac defibrillator follows with [facility] cardiology Abnormal CXR -bilateral hilar opacities negative for COVID 19 Altered mental status -resolved Conservative cardiac management. Subjective Date of service: 07/15/19 Interval history: No cardiac events reported. Objective Vital Signs Temp Pulse Pulse Pulse Resp BP Pulse Ox 07/15/19 09:17 195/92 07/15/19 09:16 195/92 07/15/19 08:00 95 H 65 69 13 99 07/15/19 07:53 98.6 F 07/15/19 06:42 15 07/15/19 04:00 66 66 69 17 100 07/15/19 00:00 72 69 20 100 07/14/19 22:00 58 L 07/14/19 21:49 12 07/14/19 21:45 72 187/71 07/14/19 21:41 72 187/71 07/14/19 20:00 58 L 69 19 100 07/14/19 19:00 97.5 F L 07/14/19 17:02 98.5 F 07/14/19 15:55 69 19 98 07/14/19 14:31 83 15 198/97 100 07/14/19 14:01 67 13 181/77 100 07/14/19 13:31 72 16 198/97 100 07/14/19 13:00 65 15 181/77 100 07/14/19 12:31 81 21 177/76 98 - Physical Examination General: No Apparent Distress HEENT: Positive: PERRL Neck: Positive: trachea midline Cardiac: Positive: Other (paced) Neuro: Positive: Grossly Intact - Labs and Meds Coagulation 07/15/19 Range/Units 04:00 PT 13.8 (12.2-14.9) Sec. INR 1.05 (0.87-1.13) CBC 07/15/19 Range/Units 04:00 WBC 6.9 (4.5-11.0) K/mm3 RBC 4.09 (3.65-5.03) M/mm3 Hgb 11.3 (10.1-14.3) gm/dl Hct 35.0 (30.3-42.9) % Plt Count 159 (140-440) K/mm3 Lymph # Pulley Worker [place] # Pulley Worker Eos # Pulley Worker Baso # Pulley Worker Comprehensive Metabolic Panel 07/15/19 Range/Units 04:00 Sodium 139 (137-145) mmol/L Potassium 4.6 (3.6-5.0) mmol/L Chloride 101.8 (98-107) mmol/L Carbon Dioxide 23 (22-30) mmol/L BUN 12 (7-17) mg/dL Creatinine 1.0 (0.7-1.2) mg/dL Glucose 325 H (65-100) mg/dL Calcium 8.5 (8.4-10.2) mg/dL
--- NOTE | 2019-07-15 12:51 | Progress Note ---
Assessment and Plan Cultures: 07/14/2019 blood culture: no growth COVID negative A/P: 68-year-old female with hypertension, cardiomyopathy, status post indwelling AICD, diabetes mellitus, hypothyroidism, asthma, history of breast cancer, admitted with: #?Bilateral airspace disease: Unlikely pneumonia. No fever or leucocytosis. Lungs clear on auscultation. CRP and pro-calcitonin are low. Low suspicion for infectious process. COVID negative. #CED versus CKD #DM-2 Recs: COVID negative Doing well off abx. No fever or leucocytosis. Lungs clear on auscultation. CRP and pro-calcitonin are low Will sign off. Please call with questions. My Kumar MD, FACP [facility] ([facility]) C: [phone] O: [phone] F: [phone] Subjective Date of service: 07/15/19 Interval history: No fever. COVID negative. Breathing at baseline. Objective - Exam Narrative Exam: Physical Exam: Constitutional: Alert, cooperative. No acute distress Head, Ears, Nose: Normocephalic, atraumatic. External ears, nose normal Eyes: Conjunctivae/corneas clear. No icterus. No ptosis. Neck: Supple, no meningeal signs Cardiovascular: S1, S2 normal. Respiratory: Good air entry, clear to auscultation bilaterally GI: Soft, non-tender; bowel sounds normal. No peritoneal signs Musculoskeletal: No pedal edema, no cyanosis. Skin: No rash or abscess Hem/Lymphatic: No palpable cervical or supraclavicular nodes. No lymphangitis Psych: Mood ok. Affect normal Neurological: Awake, alert, oriented. No gross abnormality - Constitutional Vitals: Vital Signs Temp Pulse Resp BP Pulse Ox 97.6 F 60 15 195/92 99 07/15/19 12:00 07/15/19 12:00 07/15/19 12:00 07/15/19 09:17 07/15/19 12:00 Temperature -Last 24 Hours Temperature 97.6 F Temperature 98.6 F Temperature 97.5 F Temperature 98.5 F - Labs CBC & Chem 7: 07/15/19 04:00 07/15/19 04:00 Labs: Abnormal lab results 07/14/19 07/14/19 07/14/19 Range/Units 13:29 16:49 21:30 RDW (13.2-15.2) % Glucose (65-100) mg/dL POC Glucose 260 H 300 H 276 H (70-105) 07/15/19 07/15/19 07/15/19 Range/Units 04:00 04:00 08:45 RDW 16.1 H (13.2-15.2) % Glucose 325 H (65-100) mg/dL POC Glucose 311 H (70-105) 07/15/19 Range/Units 11:43 RDW (13.2-15.2) % Glucose (65-100) mg/dL POC Glucose 347 H (70-105)
[2019-07-15] MEDS ORDERED: ONDANSETRON 4 MG/2 ML INJ IV PRN (12:53)
[2019-07-15] MEDS: INSULIN GLARGINE 100 UNITS/ML SUB-Q SCH ×2 (14:15→21:24)
[2019-07-15] MEDS: PHENAZOPYRIDINE 200 MG TAB PO SCH ×2 (14:17→21:25)
[2019-07-15] MEDS ORDERED: INSULIN LISPRO 100 UNIT/ML SUB-Q SCH (17:00)
[2019-07-15] MEDS: BUDESONIDE 0.5 MG/2 ML NEBU IH SCH (19:54)
[2019-07-15] MEDS: ARFORMOTEROL 15 MCG/2 ML NEBU IH SCH (19:54)
[2019-07-15] MEDS ORDERED: traZODone 100 MG TAB PO SCH (22:00)
[2019-07-15] MEDS ORDERED: tiZANidine TAB 4 MG TAB PO SCH (22:00)
[2019-07-15] MEDS ORDERED: SODIUM CHLORIDE 0.9% 250ML 250 ML IV ONE (22:33)
[2019-07-16] MEDS: SODIUM CHLORIDE 0.9% 1000 ML 1,000 ML IV SCH ×2 (01:32→10:25)
[2019-07-16] MEDS: PHENAZOPYRIDINE 200 MG TAB PO SCH (05:15)
[2019-07-16] MEDS: HEPARIN 5,000 UNIT/1 ML VIAL SUB-Q SCH (05:15)
[2019-07-16] MEDS: MORPHINE 2 MG/1 ML INJ IV PRN ×2 (06:40→12:38)
[2019-07-16] MEDS: ISOSORBIDE DINITRATE 20 MG TAB PO SCH (09:10)
[2019-07-16] MEDS: TORSEMIDE 10 MG TAB PO SCH (09:11)
[2019-07-16] MEDS: ASPIRIN EC 325 MG TAB PO SCH (09:11)
[2019-07-16] MEDS: INSULIN GLARGINE 100 UNITS/ML SUB-Q SCH (09:11)
[2019-07-16] MEDS: BUDESONIDE 0.5 MG/2 ML NEBU IH SCH (09:35)
[2019-07-16] MEDS: ARFORMOTEROL 15 MCG/2 ML NEBU IH SCH (09:35)
[2019-07-16] MEDS: COLCHICINE 0.6 MG CAP PO SCH (09:36)
[2019-07-16] MEDS: INSULIN LISPRO 100 UNIT/ML SUB-Q SCH (09:36)
--- NOTE | 2019-07-16 10:49 | Progress Note ---
Assessment and Plan Hx of nonischemic cardiomyopathy LVEF 40 to 45% 02/2019. No ischemia by MPI at [facility] 02/2019. Presence of cardiac defibrillator follows with [facility] cardiology Abnormal CXR -bilateral hilar opacities negative for COVID 19 Altered mental status -resolved Conservative cardiac management. Subjective Date of service: 07/16/19 Interval history: No cardiac events reported. Objective Vital Signs Temp Pulse Pulse Pulse Resp Resp BP 07/16/19 09:43 07/16/19 09:35 70 12 07/16/19 09:10 120 H 156/74 07/16/19 07:20 22 145/80 07/16/19 07:10 101 H 23 145/80 07/16/19 07:00 60 15 145/80 07/16/19 06:50 61 20 122/68 07/16/19 06:40 61 18 122/68 07/16/19 06:30 60 10 L 122/68 07/16/19 06:20 60 11 L 122/68 07/16/19 06:10 60 15 122/68 07/16/19 06:00 60 15 122/68 07/16/19 05:50 60 15 124/64 07/16/19 05:40 60 14 124/64 07/16/19 05:30 60 14 124/64 07/16/19 05:20 60 13 124/64 07/16/19 05:10 60 12 124/64 07/16/19 05:00 60 14 124/64 07/16/19 04:50 17 115/70 07/16/19 04:40 60 15 115/70 07/16/19 04:30 60 28 H 115/70 07/16/19 04:20 60 15 115/70 07/16/19 04:10 60 14 115/70 07/16/19 04:00 60 60 15 115/70 07/16/19 03:50 60 12 116/64 07/16/19 03:40 76 18 116/64 07/16/19 03:30 60 12 116/64 07/16/19 03:20 60 15 116/64 07/16/19 03:10 60 18 116/64 07/16/19 03:00 60 16 116/64 07/16/19 02:50 83 15 101/62 07/16/19 02:40 60 15 101/62 06/03/20 02:30 60 16 101/62 06/03/20 02:20 60 14 101/62 06/0320 02:10 60 18 101/62 [id number] 02:00 60 16 101/62 06/0320 01:50 60 15 96/58 06/0320 01:40 60 15 96/58 06/03/20 01:30 60 16 96/58 06/03/20 01:20 60 15 96/58 06/03/20 01:10 60 15 96/58 06/0320 01:00 60 15 96/58 06/0320 00:50 60 15 86/50 06/03/20 00:40 60 14 86/50 06/03/20 00:30 60 16 86/50 06/03/20 00:20 60 15 86/50 06/03/20 00:10 60 15 86/50 /03/20 00:00 98.7 F 60 60 16 86/50 0220 23:50 60 17 84/45 0220 23:40 60 17 84/45 /0220 23:30 60 17 84/45 /0220 23:20 60 16 84/45 /0220 23:10 60 17 84/45 /0220 23:00 60 17 81/44 0220 22:50 60 19 75/39 /02/20 22:40 60 18 75/39 20 22:30 60 18 75/40 0220 22:20 60 12 79/40 0220 22:10 63 19 75/34 0220 22:00 60 17 192/76 20 21:50 72 12 192/76 07/15/19 21:40 86 17 192/76 07/15/19 21:30 74 14 192/76 07/15/19 21:23 65 192/71 07/15/19 21:20 65 11 L 192/76 07/15/19 21:12 07/15/19 21:10 66 13 192/76 07/15/19 21:00 68 16 192/76 07/15/19 20:50 63 14 173/79 07/15/19 20:40 65 19 173/79 07/15/19 20:30 78 16 173/79 07/15/19 20:20 68 20 197/175 07/15/19 20:10 69 88 25 H 18 197/175 07/15/19 20:00 68 62 13 144/84 07/15/19 19:50 62 16 144/84 07/15/19 19:40 63 20 144/84 07/15/19 19:30 62 17 144/84 07/15/19 19:20 72 13 144/84 07/15/19 19:10 64 16 144/84 07/15/19 19:00 66 19 180/80 07/15/19 18:50 60 12 180/80 07/15/19 18:40 71 16 180/80 07/15/19 18:30 70 20 180/80 07/15/19 18:20 77 19 180/80 07/15/19 18:10 79 16 180/80 07/15/19 18:00 69 13 161/83 07/15/19 17:50 61 11 L 180/80 07/15/19 17:40 63 17 180/80 07/15/19 17:30 68 16 196/79 07/15/19 17:20 70 16 196/79 07/15/19 17:10 61 16 196/79 07/15/19 17:00 61 15 196/79 07/15/19 16:00 61 61 13 07/15/19 15:55 97.7 F 07/15/19 12:00 97.6 F 60 60 15 Pulse Ox 07/16/19 09:43 96 07/16/19 09:35 07/16/19 09:10 07/16/19 07:20 99 07/16/19 07:10 99 07/16/19 07:00 99 07/16/19 06:50 100 07/16/19 06:40 100 07/16/19 06:30 100 07/16/19 06:20 99 07/16/19 06:10 100 07/16/19 06:00 100 07/16/19 05:50 100 07/16/19 05:40 99 07/16/19 05:30 99 07/16/19 05:20 99 07/16/19 05:10 99 07/16/19 05:00 98 07/16/19 04:50 98 07/16/19 04:40 98 07/16/19 04:30 98 07/16/19 04:20 98 07/16/19 04:10 99 07/16/19 04:00 99 07/16/19 03:50 100 07/16/19 03:40 95 07/16/19 03:30 99 07/16/19 03:20 99 07/16/19 03:10 99 07/16/19 03:00 98 07/16/19 02:50 99 07/16/19 02:40 100 07/16/19 02:30 99 07/16/19 02:20 99 07/16/19 02:10 99 07/16/19 02:00 99 07/16/19 01:50 98 07/16/19 01:40 98 07/16/19 01:30 98 07/16/19 01:20 98 07/16/19 01:10 98 07/16/19 01:00 100 07/16/19 00:50 98 07/16/19 00:40 97 07/16/19 00:30 97 07/16/19 00:20 98 07/16/19 00:10 98 07/16/19 00:00 98 07/15/19 23:50 98 07/15/19 23:40 96 07/15/19 23:30 95 07/15/19 23:20 94 07/15/19 23:10 95 07/15/19 23:00 94 07/15/19 22:50 94 07/15/19 22:40 95 07/15/19 22:30 92 07/15/19 22:20 91 07/15/19 22:10 93 07/15/19 22:00 94 07/15/19 21:50 98 07/15/19 21:40 93 07/15/19 21:30 97 07/15/19 21:23 06 21:20 98 07/15/19 21:12 98 07/15/19 21:10 98 07/15/19 21:00 97 07/15/19 20:50 99 07/15/19 20:40 98 07/15/19 20:30 97 07/15/19 20:20 98 07/15/19 20:10 99 07/15/19 20:00 100 07/15/19 19:50 100 07/15/19 19:40 98 07/15/19 19:30 99 07/15/19 19:20 98 07/15/19 19:10 99 07/15/19 19:00 93 07/15/19 18:50 99 07/15/19 18:40 98 07/15/19 18:30 97 07/15/19 18:20 98 07/15/19 18:10 99 07/15/19 18:00 100 07/15/19 17:50 98 07/15/19 17:40 98 07/15/19 17:30 99 07/15/19 17:20 98 07/15/19 17:10 99 07/15/19 17:00 98 07/15/19 16:00 98 07/15/19 15:55 07/15/19 12:00 99 - Physical Examination General: No Apparent Distress HEENT: Positive: PERRL Neck: Positive: trachea midline Cardiac: Positive: Other (paced) Neuro: Positive: Grossly Intact
[2019-07-16] MEDS: hydrALAZINE 100 MG TAB PO SCH (11:33)
[2019-07-16] MEDS: carvediloL 25 MG TAB PO SCH (11:34)
[2019-07-16] MEDS ORDERED: INSULIN LISPRO 100 UNIT/ML SUB-Q ONE ×2 (11:47→15:00)
--- NOTE | 2019-07-16 15:14 | Discharge Summary ---
Providers - Providers Date of Admission: 07/14/19 01:25 Date of discharge: 07/16/19 Attending physician: ANDRÉS ADRIAN 07/14/19 Consult to Cardiac Rehabilitation [CONS] Routine Reason For Exam: Phase I 07/14/19 02:04 Consult to Cardiology [CONS] Routine Consulting Provider: JONAH PRASAD Reason For Exam: CHEST PAIN Consult to Dietitian/Nutrition [CONS] Routine Physician Instructions: Reason For Exam: Reason for Consult: Diet education Consult to Physician [CONS] Routine Comment: Consulting Provider: PHOENIX ABRAMS Physician Instructions: Reason For Exam: PNEUMONIA, R/O COVID 19 Primary care physician: DINORA BRO MD Hospitalization Condition: Fair Hospital course: Patient is 68-year-old -Thai female with known history of hypertension, DC x2 in the past, diabetes mellitus, hypothyroidism, asthma and breast cancer presented to the emergency room via EMS from home with altered mental status. Patient was said to be very sleepy and not quite arousable. She became more alert upon arrival in the emergency room. Patient indicates that she last remembered that she was waiting for someone at home while smoking some marijuana earlier in the day. She has been having some midsternal chest pain which has been intermittent. She denies any radiation, no no relieving or exacerbating factor. Chest pain is said to be sharp. She denies any nausea vomiting, no diarrhea, no fever or chills, no abdominal pain. She admits she has been having some cough productive of some yellowish sputum.. Work up in the emergency room revealed patchy bilateral airway disease on the chest x-ray. labs revealed CED. She was put on isolation, Covid-19 test ordered and she was admitted. She was negative for Covid-19. ID Physician ruled out pneumonia. cardiology ruled out cardiology etiology of chest pain. She was then discharged home Acute kidney injury Due to vasomotor nephropathy Now resolved aftyer iv fluids Chest pain Non cardiac, due to GERD Type II diabetes mellitus Accu-Cheks and resumed routine home medications once reconciled. Hypertensive urgency Resume home meds Added hydralazine prn Total time spent on discharge , 35 mins Disposition: TO HOME OR SELFCARE Core Measure Documentation - Palliative Care Palliative Care/ Comfort Measures: Not Applicable - Core Measures Any of the following diagnoses?: none Exam - Constitutional Vitals: Temp Pulse Resp BP Pulse Ox 97.8 F 60 15 122/58 98 07/16/19 12:00 07/16/19 11:20 07/16/19 11:20 07/16/19 11:20 07/16/19 11:10 Plan Activity: advance as tolerated Diet: low fat, low cholesterol, low salt Additional Instructions: 1.Follow up with PCP in 1 week. 2.Follow up with Pulmonology in 1 week Plan of Treatment: 1.Follow up with PCP in 1 week. 2.Follow up with Pulmonology in 1 week Follow up with: DINORA BRO MD [Primary Care Provider] - 3-5 Days Prescriptions: Phenazopyridine [Pyridium] 200 mg PO Q8HR PRN #15 tablet PRN Reason: dysuria
[2019-07-16 16:07] VITALS: BP 165/97
== END 2019-07-16 17:45 | disposition home or self-care (01) | DRG 194 ==
LOC: ED 21:52 → IMCU 07-14 01:25
PROVIDERS: ADMIT Internal Medicine Geriatric Medicine; ATTEND Internal Medicine
DX: J18.9 Pneumonia, unspecified organism (principal); N17.9 Acute kidney failure, unspecified; I42.8 Other cardiomyopathies; J45.909 Unspecified asthma, uncomplicated; I50.9 Heart failure, unspecified; I11.0 Hypertensive heart disease with heart failure; E03.9 Hypothyroidism, unspecified; I95.9 Hypotension, unspecified; C50.911 Malignant neoplasm of unspecified site of right female breast; I16.0 Hypertensive urgency; Z95.810 Presence of automatic (implantable) cardiac defibrillator; Z03.818 Encounter for observation for suspected exposure to other biological agents ruled out; I25.2 Old myocardial infarction
CPT/HCPCS: 36415; 70450; 71045; 80048; 80053; 80307; 80320; 81001; 82140; 82728; 82962; 83615; 83880; 84145; 84439; 84443; 84484; 85025; 85379; 85610; 85730; 86140; 87040; 93005; 94640; 94644; 94760; G0378; A9270-GY; G0480; J0456; J0696; J1644; J1815; J2270; J2405; J2785; J7030; J7040; J7050; U0003-CS